=== PATIENT | male | born 1995 | race Caucasian/White ===

== ENCOUNTER → 2020-10-15 | Outpatient (CLI) | payer SELFPAY ==
--- NOTE | 2020-10-15 19:06 | Diagnostic Imaging Report ---
INDICATION: Pain in the coccyx, fall. TIME OF EXAM: 6:58 PM Frontal and lateral views of the sacrum and coccyx were obtained. Sacrococcygeal alignment is normal. No fractures are identified. Sacral arcuate lines are intact. IMPRESSION: No acute bony abnormality is detected. Dictated by: Dictated on workstation # [id number]
== END ==
LOC: RAD FS 18:35
PROVIDERS: ATTEND Nurse Practitioner Family
DX: M53.3 Sacrococcygeal disorders, not elsewhere classified (principal); W19.XXXA Unspecified fall, initial encounter
CPT/HCPCS: 72220